=== PATIENT | female | born 1950 | race Caucasian/White ===

== ENCOUNTER → 2017-01-03 | Outpatient (CLI) | payer OTHER | LOC: CIMAGING 10:33 | DX: Z12.31 Encounter for screening mammogram for malignant neoplasm of breast (principal) | CPT/HCPCS: G0202 ==

== ENCOUNTER → 2018-01-04 | Outpatient (CLI) | payer OTHER | LOC: CIMAGING 09:53 | PROVIDERS: ATTEND Family Medicine Sports Medicine | DX: Z12.31 Encounter for screening mammogram for malignant neoplasm of breast (principal) ==

== ENCOUNTER → 2019-01-07 | Outpatient (CLI) | payer OTHER | LOC: CIMAGING 10:37 | PROVIDERS: ATTEND Family Medicine Sports Medicine | DX: Z12.31 Encounter for screening mammogram for malignant neoplasm of breast (principal); H54.8 Legal blindness, as defined in USA ==